=== PATIENT | female | born 1930 | race Caucasian/White ===

== ENCOUNTER 2017-03-30 10:53 | Emergency (ER) | payer MEDICARE ==
[~2017-03-30] VITALS: Ht 162.6 cm; Wt 63.5 kg
[~2017-03-30 10:53] MED LIST: CELE200C PO; DICY20TA11 PO; DONE5TAB34 PO; HYDR-3326 PO; LANS30CA54 PO; METR250T4 PO
[2017-03-30] MEDS ORDERED: PREDNISONE PO (11:28)
[2017-03-30] MEDS ORDERED: HYDR-552 PO (11:28)
[2017-03-30] MEDS ORDERED: LISI-607 PO (11:28)
--- NOTE | 2017-03-30 11:30 | NUR ---
DR BROOKS AT THE BEDSIDE FOR EVAL AND EXAM.
[2017-03-30 12:00] VITALS: BP 153/60
--- NOTE | 2017-03-30 12:00 | NUR ---
Patient discharged to home in stable conditon. Written and verbal after care instructions given. Patient verbalizes understanding of instructions.
== END 2017-03-30 12:01 | disposition home or self-care (01) ==
LOC: ER 10:53
DX: Z48.00 Encounter for change or removal of nonsurgical wound dressing (principal); S70.11XA Contusion of right thigh, initial encounter; K21.9 Gastro-esophageal reflux disease without esophagitis; M19.90 Unspecified osteoarthritis, unspecified site; J45.909 Unspecified asthma, uncomplicated; I10 Essential (primary) hypertension; G70.00 Myasthenia gravis without (acute) exacerbation; Z88.0 Allergy status to penicillin; Z88.1 Allergy status to other antibiotic agents; W22.03XA Walked into furniture, initial encounter; Y93.89 Activity, other specified; Y92.9 Unspecified place or not applicable; Y99.9 Unspecified external cause status
CPT/HCPCS: A4663

== ENCOUNTER 2017-07-25 13:58 | Emergency (ER) | payer MEDICARE ==
[~2017-07-25] VITALS: Ht 162.6 cm; Wt 62.1 kg
[~2017-07-25 13:58] MED LIST changes: +HYDR-552 PO; +LISI-607 PO; +PREDNISONE PO
[2017-07-25] MEDS ORDERED: HYDROCODONE/APAP 5-325MG TABLET PO ONE (16:07)
[2017-07-25] MEDS ORDERED: DEXAMETHASONE SOD PHOSPHATE 4 MG INJ IM ONE (16:15)
[2017-07-25] MEDS ORDERED: HYDROCODONE/APAP 5-325MG TABLET ONE (16:31)
[2017-07-25] MEDS ORDERED: DEXAMETHASONE SOD PHOSPHATE 10 MG INJ ONE (16:33)
--- NOTE | 2017-07-25 16:36 | NUR ---
PT WAS EVALUATED BY DR WANG. PT WAS D/C TO HOME. D/C INSTRUCTIONS GIVEN TO THE PT.
[2017-07-25 16:37] VITALS: BP 139/81
== END 2017-07-25 16:38 | disposition home or self-care (01) ==
LOC: ER 14:01
DX: G89.29 Other chronic pain (principal); M54.5 Low back pain; J45.909 Unspecified asthma, uncomplicated; G70.00 Myasthenia gravis without (acute) exacerbation; K21.9 Gastro-esophageal reflux disease without esophagitis; M19.90 Unspecified osteoarthritis, unspecified site; Z88.0 Allergy status to penicillin; I10 Essential (primary) hypertension
CPT/HCPCS: A4663; J1100